=== PATIENT | male | born 1995 | race Asian ===

== ENCOUNTER 2018-10-17 19:29 | Emergency (ER) | payer BC ==
[~2018-10-17] VITALS: Ht 177.8 cm; Wt 81.6 kg
[2018-10-17 20:45] VITALS: BP 161/64; TEMP 99.7
== END 2018-10-17 20:52 | disposition home or self-care (01) ==
LOC: ED 19:29
DX: S93.402A Sprain of unspecified ligament of left ankle, initial encounter (principal); X50.1XXA Overexertion from prolonged static or awkward postures, initial encounter; Y93.67 Activity, basketball
CPT/HCPCS: 99282